=== PATIENT | male | born 1975 | race Caucasian/White ===

== ENCOUNTER → 2016-10-19 | Outpatient (CLI) | payer OTHER ==
[~2016-10-19] MED LIST: ADVIN50/60 INH; ALBUAER2 INH; AZIT500T3 PO; BUPR8MIS SL; LEVO-18 PO; LISI20TA3 PO; MTR/600 PO; OMEP20CA9 PO; PRED10TA PO; SNG10 PO; WLLXL300 PO
[2016-10-19 14:02] LABS: BENZODIAZEPINE, URINE NEG (NEG); COCAINE,URINE NEG (NEG); PHENCYCLIDINE, URINE NEG (NEG)
[2016-10-23 07:29] LABS: NORBUPRENORPHINE QNT 1440 NG/ML (CUTOFF=2)
== END | disposition home or self-care (01) ==
LOC: C.LAB1850 12:29
PROVIDERS: ATTEND Psychiatry & Neurology Psychiatry
DX: F11.20 Opioid dependence, uncomplicated (principal)

== ENCOUNTER → 2017-01-10 | Outpatient (CLI) | payer OTHER ==
[2017-01-10 15:38] LABS: BENZODIAZEPINE, URINE NEG (NEG); COCAINE,URINE NEG (NEG); PHENCYCLIDINE, URINE NEG (NEG)
[2017-01-13 15:32] LABS: NORBUPRENORPHINE QNT 1480 NG/ML (CUTOFF=2)
== END | disposition home or self-care (01) ==
LOC: C.LAB1850 13:26
PROVIDERS: ATTEND Psychiatry & Neurology Psychiatry
DX: F11.20 Opioid dependence, uncomplicated (principal)

== ENCOUNTER → 2017-01-11 | Outpatient (CLI) | payer OTHER ==
--- NOTE | 2017-01-11 12:38 | DIAGNOSTIC IMAGING REPORT ---
CHEST 2 VIEWS ROUTINE HISTORY: Cough. Short of breath. CHEST PAIN COMPARISON: Chest 02/06/2016. FINDINGS: The heart remains mildly enlarged. Mild diffuse interstitial thickening persists. This is likely chronic. No new focal lung consolidations to suggest pneumonia. No evidence for pulmonary edema. No pleural effusions. No pneumothorax. IMPRESSION: No significant change compared to the prior study. No acute process. Electronically signed by: Randal Gallegos M.D. 01/11/2017 12:36 PM Dictated Date/Time: 01/11/2017 12:34 PM
== END | disposition home or self-care (01) ==
LOC: C.RAD1850 12:01
PROVIDERS: ATTEND Physician Assistant Medical
DX: R07.9 Chest pain, unspecified (principal)

== ENCOUNTER 2017-01-30 15:48 | Inpatient (IN) | payer OTHER ==
[~2017-01-30] VITALS: Ht 182.9 cm; Wt 112.3 kg
[~2017-01-30 15:48] MED LIST changes: -AZIT500T3 PO; -LEVO-18 PO; -PRED10TA PO
[2017-01-30] MEDS ORDERED: SODIUM CHLORIDE 0.9% 1000ML 1,000 ML IV STA ×3 (16:42→19:18)
[2017-01-30] MEDS ORDERED: ACETAMINOPHEN 500 MG TAB PO STA (16:42)
[2017-01-30] MEDS ORDERED: ONDANSETRON INJ 2 MG/ML 2 ML VIAL IV STA (16:42)
[2017-01-30 16:51] LABS: BASO % 0.1 %; BASO ABS # 0.01 K/uL (0-0.2); COMPLETE YES; EOS % 0.1 %; HEMATOCRIT 43.2 % (42-52); IG% 0.2 %; LYMPH % 6.7 %; LYMPH ABS # 0.98 K/uL (1.2-3.4); MEAN CELL VOLUME 79.6 fL (80-100); MEAN CORPUSCULAR HEMOGLOBIN 25.6 pg (25-34); MEAN CORPUSCULAR HGB CONC 32.2 g/dl (32-36); MEAN PLATELET VOLUME 9.8 fL (7.4-10.4); MONO % 4.8 %; NEUT % 88.1 %; PLATELET COUNT 275 K/uL (130-400); RED BLOOD COUNT 5.43 M/uL (4.7-6.1); WHITE BLOOD COUNT 14.71 K/uL (4.8-10.8)
--- NOTE | 2017-01-30 16:52 | EMERGENCY ROOM VISIT NOTE ---
History Report prepared by Liz: Eugenia Jose Under the Supervision of: Dr. Marissa Garrison M.D. First contact with patient: 16:34 Chief Complaint: FLANK PAIN Stated Complaint: PAIN IN SIDE, NOT FEELING WELL History of Present Illness The patient is a 41 year old male who presents to the Emergency Room with complaints of left flank pain starting 1 month [employer]. The patient states that he has been having musculoskeletal pain on his left side for the last month but states that the last two day it has worsened. He rates the pain as a 7/10 in severity. The patient denies any trouble urinating but states that his urine has been darker than usual. The patient states that he has hepatitis C but states that he has had his liver function tested pretty regularly. The patient denies any history of kidney stones but states that he has had gallstones in the past. The patient denies taking any ibuprofen or Tylenol today for the pain. The patient states that he does smoke 1 pack of cigarettes a day. Source of History: patient Onset: 2 days Position: other (Left Flank) Symptom Intensity: 7/10 Timing: worsening Associated Symptoms: No urinary symptoms Note: Associated symptoms: darker urine. Review of Systems See HPI for pertinent positives & negatives. A total of 10 systems reviewed and were otherwise negative. Past Medical & Surgical Medical Problems: (1) Asthma (2) Hepatitis C (3) SIRS (systemic inflammatory response syndrome) Family History No significant family history Social History Smoking Status: Current Every Day Smoker Drug Use: none Marital Status: Housing Status: lives with family Occupation Status: employed Current/Historical Medications Scheduled Buprenorphine Hcl-Naloxone Hcl (Suboxone 8-2 Mg), 12 MG SL DAILY Bupropion HCl (Bupropion HCl Xl), 300 MG PO DAILY Fluticasone Prop/Salmeterol (Advair Diskus 500/50 60 Dose), 1 PUFF INH BID Lisinopril (Prinivil), 1 TAB PO DAILY Montelukast Sod (Montelukast Sodium), 10 MG PO QPM Omeprazole (Prilosec), 20 MG PO DAILY Scheduled PRN Albuterol (Ventolin), 2 PUFFS INH Q4H PRN for Asthma Symptoms Allergies Coded Allergies: Penicillins (Verified Allergy, Unknown, 01/30/17) Physical Exam Vital Signs Date Time Temp Pulse Resp B/P Pulse Ox O2 Delivery O2 Flow Rate FiO2 01/30/17 18:30 123 16 118/37 96 Nasal Cannula 2.0 01/30/17 17:11 123 01/30/17 16:18 38.1 124 18 146/103 88 Room Air Physical Exam Vital signs reviewed. General: Noted to be febrile, tachycardic and hypoxic on room air. HEENT: No scleral icterus, PERRLA, neck supple. Atraumatic. Cardiovascular: Regular rate and rhythm, no extra sounds. Pulmonary: Wheezing throughout bilateral lung field, primarily at the bases. Abdomen: Distended abdomen that is nontender, mild left side abdominal tenderness to palpation. Musculoskeletal: Atraumatic, no peripheral edema. Neurologic: Patient awake alert and oriented x 3, full strength in all 4 extremities. Cranial nerves 2 through 12 grossly intact. Skin: Warm, dry, no rash Medical Decision & Procedures ER Provider Diagnostic Interpretation: X-ray results as stated below per interpretation by me and the radiologist: CHEST ONE VIEW PORTABLE CLINICAL HISTORY: Wheezing. Fever. COMPARISON STUDY: Chest radiograph January 11, 2017. FINDINGS: No pneumothorax or pleural effusion is identified. Cardiac silhouette enlargement is noted. This is similar to prior exam. Interstitial thickening is noted with suspected left lung airspace opacities. There is mild right basilar opacity as well as right midlung opacity. IMPRESSION: Mild interstitial thickening and patchy bilateral airspace opacities, greater within the left lung. The findings are nonspecific but may reflect an infectious process. Radiographic follow up is recommended. Electronically signed by: Steven Oliveira M.D. 01/30/2017 5:14 PM Dictated Date/Time: 01/30/2017 5:[address] results as stated below per my review and radiologist interpretation: CT SCAN OF THE ABDOMEN AND PELVIS WITHOUT IV CONTRAST CLINICAL HISTORY: Left flank pain. COMPARISON STUDY: Abdominal CT dated 10/01/2015. TECHNIQUE: CT scan of the abdomen and pelvis is performed from the lung bases to the proximal femora. Images are reviewed in the axial, sagittal, and coronal planes. IV contrast was not administered for this examination as per the referring clinician. Automated dose control exposure was utilized. CT DOSE: 978.09 mGy.cm FINDINGS: Lung bases: The heart is mildly enlarged and without pericardial effusion. There is lipomatous hypertrophy of the interatrial septum. There is patchy airspace consolidation present at both lung bases. No pleural effusion is seen. There is a small hiatal hernia. Liver: The unenhanced liver is top normal in size and demonstrates diffusely diminished attenuation consistent with hepatic steatosis. There is no intrahepatic biliary ductal dilatation. Gallbladder: Unremarkable. Spleen: The spleen is mildly enlarged measuring 13.6 cm in length. Pancreas: Unremarkable. Adrenal glands: Unremarkable. Kidneys: The unenhanced kidneys are normal in size and without hydronephrosis. There are no renal calculi identified. There is no evidence of contour deforming renal mass lesion. Abdominal vasculature: The abdominal aorta is normal in course and caliber. Bowel: The small bowel and colon are normal in course and caliber. There are scattered colonic diverticula without CT evidence of acute diverticulitis. Mild/moderate colonic fecal retention is observed. The appendix is well-visualized and normal. Peritoneum: There is no intraperitoneal free air or abdominal ascites. A fat-containing umbilical hernia is identified. Lymphadenopathy: None. Pelvic viscera: The bladder, prostate, and seminal vesicles are normal as visualized. There is a fat-containing left inguinal hernia. Skeletal structures: No lytic or blastic lesions are seen. There is a healed left-sided rib fracture. IMPRESSION: 1. There are no acute infectious or inflammatory findings in the abdomen or pelvis. 2. Bibasilar patchy airspace consolidation is identified. This likely represents an infectious/inflammatory pneumonitis. Clinical correlation will be required. 3. Hepatic steatosis. 4. Mild splenomegaly. 5. Mild cardiac enlargement. 6. Hiatal hernia. 7. Additional findings as above. Electronically signed by: Omer Julio M.D. 01/30/2017 6:20 PM Dictated Date/Time: 01/30/2017 6:13 PM Laboratory Results Test 01/30/17 16:35 01/30/17 17:26 Urine Color DK YELLOW Urine Appearance CLEAR (CLEAR) Urine pH 6.5 (4.5-7.5) Urine Specific [place] 1.022 (1.000-1.030) Urine Protein 1+ (NEG) Urine Glucose (UA) 1+ (NEG) Urine Ketones TRACE (NEG) Urine Occult Blood NEG (NEG) Urine Nitrite NEG (NEG) Urine Bilirubin NEG (NEG) Urine Urobilinogen NEG (NEG) Urine Leukocyte Esterase NEG (NEG) Urine WBC (Auto) 1-5 /hpf (0-5) Urine RBC (Auto) 0-4 /hpf (0-4) Urine Hyaline Casts (Auto) 5-10 /lpf (0-5) Urine Epithelial Cells (Auto) 10-20 /lpf (0-5) Urine Bacteria (Auto) NEG (NEG) Total Bilirubin 0.6 mg/dl (0.2-1) Direct Bilirubin 0.2 mg/dl (0-0.2) Aspartate Amino Transf (AST/SGOT) 35 U/L (15-37) Alanine Aminotransferase (ALT/SGPT) 53 U/L (12-78) Alkaline Phosphatase 119 U/L (45-117) Total Protein 8.6 gm/dl (6.4-8.2) Albumin 3.5 gm/dl (3.4-5.0) Bedside Lactic Acid Venous 2.67 mmol/L (0.90-1.70) Laboratory results per my review. Medications Administered Medications (Trade) Dose Ordered Sig/Angelina Route Start Time Stop Time Status Last Admin Dose Admin Sodium Chloride 1,000 ml @ 999 mls/hr Q1H1M STAT IV 01/30/17 16:42 01/30/17 17:42 DC 01/30/17 16:57 999 MLS/HR Sodium Chloride (Nss 1000ml) 1,000 ml @ 200 mls/hr Q5H STAT IV 01/30/17 16:42 01/30/17 21:41 DC 01/30/17 16:58 200 MLS/HR Acetaminophen (Tylenol Tab) 1,000 mg NOW STAT PO 01/30/17 16:42 01/30/17 16:45 DC 01/30/17 16:58 1,000 MG Ondansetron HCl (Zofran Inj) 4 mg NOW STAT IV 01/30/17 16:42 01/30/17 16:45 DC 01/30/17 16:58 4 MG Levofloxacin 750 mg 750 mg NOW STAT IV 01/30/17 17:05 01/30/17 17:06 DC 01/30/17 17:26 750 MG Sodium Chloride (Nss 1000ml) 1,000 ml @ 999 mls/hr Q1H1M STAT IV 01/30/17 19:18 01/30/17 20:18 DC 01/30/17 19:18 999 MLS/HR Acetaminophen (Tylenol Tab) 650 mg Q4H PRN PO 01/30/17 20:00 03/01/17 19:59 5//17 10:43 650 MG ECG Indication: abdominal pain Rate (beats per minute): 118 Rhythm: sinus tachycardia Findings: no acute ischemic change, no ectopy ED Course 1633: Past medical records reviewed. The patient was evaluated in room A11B. A complete history and physical examination was performed. 1641: Ordered Zofran Inj 4 mg IV, Tylenol Tab 1,000 mg PO, Sodium Chloride 1, 000 ml @ 200 mls/hr IV, Sodium Chloride 1,000 ml @ 999 mls/hr IV. 1704: Ordered Levofloxacin 750 mg IV. 1916: I reevaluated the patient who was hemodynamically stable. I discussed the results with him and the plan for admission for further evaluation. 1917: Ordered Sodium Chloride 1,000 ml @ 999 mls/hr IV 1930: I discussed the case with [facility]. He agreed to evaluate the patient for further management and care. Medical Decision DDx: Influenza, other viral illness, pneumonia, urinary tract infection, metabolic abnormality, medication effect, cellulitis, meningitis, intra-abdominal source. This pt was evaluated and appeared to be ill. IV access was obtained and lab work was drawn. Pt was placed on the clinical research monitor. He was hydrated with NSS , given tylenol po and IV zofran. POC lactate and WBC are elevated. CXR is concernign for a bilateral PNA. Blood cultures were sent and pt was medicated with IV levaquin. Case was d/w Dr Diez of the hospitalist service and he agreed to evaluate for further management. Pt is aware of the plan and agrees. Consults Time Called: 1904 Consulting Physician: Dr. Heelna [facility] Returned Call: 1930 I discussed the case with Dr. [facility]. He agreed to evaluate the patient for further management and care. Impression Primary Impression: Bilateral pneumonia Additional Impression: Sepsis Critical Care I have personally spent greater than 30 minutes of critical care time in the direct management of this patient. This includes bedside care, interpretation of diagnostic studies, and testing, discussion with consultants, patient, and family members, and other required patient management activities. This 30 minutes is in excess of all separately billable procedures. Scribe Attestation The scribe's documentation has been prepared under my direction and personally reviewed by me in its entirety. I confirm that the note above accurately reflects all work, treatment, procedures, and medical decision making performed by me. Departure Information Dispostion Being Evaluated By Hospitalist Referrals No Doctor, Assigned (PCP) Patient Instructions My [facility] Problem Qualifiers Primary Impression: Bilateral pneumonia
[2017-01-30 16:58] LABS: URINE APPEARANCE CLEAR (CLEAR); URINE COLOR DK YELLOW; URINE NITRITE NEG (NEG); URINE PH 6.5 (4.5-7.5); URINE SPECIFIC GRAVITY 1.022 (1.000-1.030); UROBILINOGEN NEG (NEG); ZZUR CULT IF INDIC CLEAN CATCH NO
[2017-01-30 16:59] LABS: MANUAL MICROSCOPIC REQUIRED? NO; REVIEW REQ? NO; URINE BILIRUBIN NEG (NEG)
[2017-01-30 17:02] LABS: BUN/CREATININE RATIO 10.5 (10-20); CALCIUM 9.3 mg/dl (8.5-10.1); CREATININE 1.2 mg/dl (0.60-1.40); POTASSIUM 4.2 mmol/L (3.5-5.1)
[2017-01-30] MEDS ORDERED: LEVAQUIN 750MG / 150ML D5W IV STA (17:05)
--- NOTE | 2017-01-30 17:15 | DIAGNOSTIC IMAGING REPORT ---
CHEST ONE VIEW PORTABLE CLINICAL HISTORY: Wheezing. Fever. COMPARISON STUDY: Chest radiograph January 11, 2017. FINDINGS: No pneumothorax or pleural effusion is identified. Cardiac silhouette enlargement is noted. This is similar to prior exam. Interstitial thickening is noted with suspected left lung airspace opacities. There is mild right basilar opacity as well as right midlung opacity. IMPRESSION: Mild interstitial thickening and patchy bilateral airspace opacities, greater within the left lung. The findings are nonspecific but may reflect an infectious process. Radiographic follow up is recommended. Electronically signed by: Steven Oliveira M.D. 01/30/2017 5:14 PM Dictated Date/Time: 01/30/2017 5:12 PM
--- NOTE | 2017-01-30 18:21 | DIAGNOSTIC IMAGING REPORT ---
CT SCAN OF THE ABDOMEN AND PELVIS WITHOUT IV CONTRAST CLINICAL HISTORY: Left flank pain. COMPARISON STUDY: Abdominal CT dated 10/01/2015. TECHNIQUE: CT scan of the abdomen and pelvis is performed from the lung bases to the proximal femora. Images are reviewed in the axial, sagittal, and coronal planes. IV contrast was not administered for this examination as per the referring clinician. Automated dose control exposure was utilized. CT DOSE: 978.09 mGy.cm FINDINGS: Lung bases: The heart is mildly enlarged and without pericardial effusion. There is lipomatous hypertrophy of the interatrial septum. There is patchy airspace consolidation present at both lung bases. No pleural effusion is seen. There is a small hiatal hernia. Liver: The unenhanced liver is top normal in size and demonstrates diffusely diminished attenuation consistent with hepatic steatosis. There is no intrahepatic biliary ductal dilatation. Gallbladder: Unremarkable. Spleen: The spleen is mildly enlarged measuring 13.6 cm in length. Pancreas: Unremarkable. Adrenal glands: Unremarkable. Kidneys: The unenhanced kidneys are normal in size and without hydronephrosis. There are no renal calculi identified. There is no evidence of contour deforming renal mass lesion. Abdominal vasculature: The abdominal aorta is normal in course and caliber. Bowel: The small bowel and colon are normal in course and caliber. There are scattered colonic diverticula without CT evidence of acute diverticulitis. Mild/moderate colonic fecal retention is observed. The appendix is well-visualized and normal. Peritoneum: There is no intraperitoneal free air or abdominal ascites. A fat-containing umbilical hernia is identified. Lymphadenopathy: None. Pelvic viscera: The bladder, prostate, and seminal vesicles are normal as visualized. There is a fat-containing left inguinal hernia. Skeletal structures: No lytic or blastic lesions are seen. There is a healed left-sided rib fracture. IMPRESSION: 1. There are no acute infectious or inflammatory findings in the abdomen or pelvis. 2. Bibasilar patchy airspace consolidation is identified. This likely represents an infectious/inflammatory pneumonitis. Clinical correlation will be required. 3. Hepatic steatosis. 4. Mild splenomegaly. 5. Mild cardiac enlargement. 6. Hiatal hernia. 7. Additional findings as above. Electronically signed by: Omer Julio M.D. 01/30/2017 6:20 PM Dictated Date/Time: 01/30/2017 6:13 PM
[2017-01-30] MEDS ORDERED: ZOLPIDEM TARTRATE 5 MG TAB PO PRN (20:00)
[2017-01-30] MEDS ORDERED: ONDANSETRON INJ 2 MG/ML 2 ML VIAL IV PRN (20:00)
[2017-01-30] MEDS ORDERED: ACETAMINOPHEN 325 MG TAB PO PRN (20:00)
[2017-01-30] MEDS ORDERED: TRAMADOL HCL 50 MG TAB PO PRN ×2 (20:00)
[2017-01-30] MEDS ORDERED: MoRPHine SULFATE 4 MG/ML 1 ML CARP\\VIAL IV PRN (20:00)
[2017-01-30] MEDS ORDERED: MoRPHine SULFATE 2 MG/ML CARP IV PRN (20:00)
--- NOTE | 2017-01-30 20:04 | History and Physical ---
History & Physical Date & Time of Service: January 30, 2017 at 20:02 Chief Complaint: Pain In Side, Not Feeling Well Primary Care Physician: No Doctor, Assigned History of Present Illness Source: patient, family The patient is a 41 yo male with a history of tobacco abuse, recurrent pneumonia , who presents to the ED with 3 days of pleuritic left lateral chest pain, worse with inspiration, ROJO, and a non productive cough. He has not had any recent travels, has no sick exposures, and is aware that continued tobacco use predisposes him to recurrent infection. Past Medical/Surgical History Medical Problems: (1) Asthma Status: Chronic (2) Hepatitis C Status: Chronic Family History No significant family history Social History Smoking Status: Current Every Day Smoker Smokeless Tobacco Use: No Alcohol Use: none Drug Use: none Marital Status: Housing status: lives with family Occupational Status: employed Immunizations History of Tetanus Vaccine?: No History of Pneumococcal: No History of Hepatitis B Vaccine: No Multi-Drug Resistant Organisms History of MDRO: No Allergies Coded Allergies: Penicillins (Verified Allergy, Unknown, 01/30/17) Home Medications Scheduled Buprenorphine Hcl-Naloxone Hcl (Suboxone 8-2 Mg), 12 MG SL DAILY Bupropion HCl (Bupropion HCl Xl), 300 MG PO DAILY Fluticasone Prop/Salmeterol (Advair Diskus 500/50 60 Dose), 1 PUFF INH BID Lisinopril (Prinivil), 1 TAB PO DAILY Montelukast Sod (Montelukast Sodium), 10 MG PO QPM Omeprazole (Prilosec), 20 MG PO DAILY Scheduled PRN Albuterol (Ventolin), 2 PUFFS INH Q4H PRN for Asthma Symptoms Review of Systems Constitutional: + fatigue, No chills, No fever, No sweats, No weakness, No weight loss Eyes: No diplopia, No discharge, No eye pain, No problem reported, No redness, No worsening of vision ENT: No dental problems, No hearing loss, No nasal symptoms, No problem reported, No sore throat, No tinnitus, No trouble swallowing, No unusual epistaxis Respiratory: + cough, No dyspnea at rest, No dyspnea on exertion, No hemoptysis , No shortness of breath, No sputum, No wheezing Cardiovascular: + chest pain, No PND, No claudication, No edema, No orthopnea, No palpitations Abdomen: No GI bleeding, No constipation, No diarrhea, No nausea, No pain, No problem reported, No vomiting Musculoskeletal: No calf pain, No joint pain, No muscle pain, No problem reported, No swelling Genitourinary - Male: No dysuria, No hematuria, No impotence, No lesions, No penile discharge, No problem reported, No urinary frequency, No urinary hesitancy, No urinary incontinence, No urinary retention, No urinary urgency Neurologic: No balance problems, No memory loss, No numbness/tingling, No paralysis, No problem reported, No vertigo, No weakness Psychiatric: + depression symptoms, + problem reported, No anhedonism, No anxiety, No insomnia, No substance abuse Endocrine: No excessive thirst, No excessive urination, No fatigue, No problem reported Hematologic / Lymphatic: No abnormal bleeding/bruising, No clotting problems, No night sweats, No problem reported, No swollen lymph nodes Integumentary: No bleeding, No color change, No itch, No new/changing skin lesions, No problem reported, No rash Allergic / Immunologic: + frequent infections, No environmental allergies, No food allergies, No hives, No pet sensitivities, No poor healing, No prolonged convalescence, No seasonal allergies Physical Exam Vital Signs Date Time Temp Pulse Resp B/P Pulse Ox O2 Delivery O2 Flow Rate FiO2 01/30/17 18:30 123 16 118/37 96 Nasal Cannula 2.0 01/30/17 17:11 123 01/30/17 16:18 38.1 124 18 146/103 88 Room Air General Appearance: WD/WN, no apparent distress Head: normocephalic, atraumatic Eyes: normal inspection, PERRL, EOMI ENT: normal ENT inspection, hearing grossly normal, TMs normal, pharynx normal Neck: supple, no adenopathy, thyroid normal, no JVD, no carotid bruits, trachea midline Respiratory/Chest: chest non-tender, + decreased breath sounds, + rhonchi Cardiovascular: regular rate, rhythm, no edema, no gallop, no JVD, no murmur, normal peripheral pulses Abdomen/GI: normal bowel sounds, non tender, soft, no organomegaly, no pulsatile mass Back: normal inspection, no CVA tenderness, no muscle spasm, normal range of motion Extremities/Musculoskelatal: normal inspection, no calf tenderness, normal capillary refill, no pedal edema, normal range of motion, non-tender 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, no motor/sensory deficits, alert, normal mood/affect, normal reflexes, oriented x 3 Skin: normal color, warm/dry, no rash Lymphatic: no adenopathy Diagnostics Laboratory Results Results Past 24 Hours Test 01/30/17 16:35 01/30/17 17:26 01/30/17 19:45 Range/Units White Blood Count 14.71 4.8-10.8 K/uL Red Blood Count 5.43 4.7-6.1 M/uL Hemoglobin 13.9 14.0-18.0 g/dL Hematocrit 43.2 42-52 % Mean Corpuscular Volume 79.6 80-100 fL Mean Corpuscular Hemoglobin 25.6 25-34 pg Mean Corpuscular Hemoglobin Concent 32.2 32-36 g/dl Platelet Count 275 130-400 K/uL Mean Platelet Volume 9.8 7.4-10.4 fL Neutrophils (%) (Auto) 88.1 % Lymphocytes (%) (Auto) 6.7 % Monocytes (%) (Auto) 4.8 % Eosinophils (%) (Auto) 0.1 % Basophils (%) (Auto) 0.1 % Neutrophils # (Auto) 12.98 1.4-6.5 K/uL Lymphocytes # (Auto) 0.98 1.2-3.4 K/uL Monocytes # (Auto) 0.70 0.11-0.59 K/uL Eosinophils # (Auto) 0.01 0-0.5 K/uL Basophils # (Auto) 0.01 0-0.2 K/uL RDW Standard Deviation 47.5 36.4-46.3 fL RDW Coefficient of Variation 16.4 11.5-14.5 % Immature Granulocyte % (Auto) 0.2 % Immature Granulocyte # (Auto) 0.03 0.00-0.02 K/uL Urine Color DK YELLOW Urine Appearance CLEAR CLEAR Urine pH 6.5 4.5-7.5 Urine Specific [place] 1.022 1.000-1.030 Urine Protein 1+ NEG Urine Glucose (UA) 1+ NEG Urine Ketones TRACE NEG Urine Occult Blood NEG NEG Urine Nitrite NEG NEG Urine Bilirubin NEG NEG Urine Urobilinogen NEG NEG Urine Leukocyte Esterase NEG NEG Urine WBC (Auto) 1-5 0-5 /hpf Urine RBC (Auto) 0-4 0-4 /hpf Urine Hyaline Casts (Auto) 5-10 0-5 /lpf Urine Epithelial Cells (Auto) 10-20 0-5 /lpf Urine Bacteria (Auto) NEG NEG Sodium Level 134 136-145 mmol/L Potassium Level 4.2 3.5-5.1 mmol/L Chloride Level 98 98-107 mmol/L Carbon Dioxide Level 28 21-32 mmol/L Anion Gap 8.0 3-11 mmol/L Blood Urea Nitrogen 13 7-18 mg/dl Creatinine 1.20 0.60-1.40 mg/dl Est Creatinine Clear Calc Drug Dose 106.7 ml/min Estimated GFR () 87.8 Estimated GFR (Non- 75.7 BUN/Creatinine Ratio 10.5 10-20 Random Glucose 145 70-99 mg/dl Calcium Level 9.3 8.5-10.1 mg/dl Total Bilirubin 0.6 0.2-1 mg/dl Direct Bilirubin 0.2 0-0.2 mg/dl Aspartate Amino Transf (AST/SGOT) 35 15-37 U/L Alanine Aminotransferase (ALT/SGPT) 53 12-78 U/L Alkaline Phosphatase 119 45-117 U/L Total Protein 8.6 6.4-8.2 gm/dl Albumin 3.5 3.4-5.0 gm/dl Bedside Lactic Acid Venous 2.67 0.90-1.70 mmol/L Microbiology Results 01/30/17 Blood Culture, Received Pending 01/30/17 Blood Culture, Received Pending Diagnostic Radiology Patient Name: NAVEEN LEI Unit Number: [id number] Dictated: 01/30/171812 Transcribed: 01/30/171812 EV Printed Date/Time: [~ rep prt dt]/[~ rep prt tm] [~ rep ct labl] - [~ rep ct ivnm] [facility] [place] [place] [address] Dictated: 01/30/171812 Transcribed: 01/30/171812 EV Printed Date/Time: [~ rep prt dt]/[~ rep prt tm] [~ rep ct labl] - [~ rep ct ivnm] CT SCAN OF THE ABDOMEN AND PELVIS WITHOUT IV CONTRAST CLINICAL HISTORY: Left flank pain. COMPARISON STUDY: Abdominal CT dated 10/01/2015. TECHNIQUE: CT scan of the abdomen and pelvis is performed from the lung bases to the proximal femora. Images are reviewed in the axial, sagittal, and coronal planes. IV contrast was not administered for this examination as per the referring clinician. Automated dose control exposure was utilized. CT DOSE: 978.09 mGy.cm FINDINGS: Lung bases: The heart is mildly enlarged and without pericardial effusion. There is lipomatous hypertrophy of the interatrial septum. There is patchy airspace consolidation present at both lung bases. No pleural effusion is seen. There is a small hiatal hernia. Liver: The unenhanced liver is top normal in size and demonstrates diffusely diminished attenuation consistent with hepatic steatosis. There is no intrahepatic biliary ductal dilatation. Gallbladder: Unremarkable. Spleen: The spleen is mildly enlarged measuring 13.6 cm in length. Pancreas: Unremarkable. Adrenal glands: Unremarkable. Kidneys: The unenhanced kidneys are normal in size and without hydronephrosis. There are no renal calculi identified. There is no evidence of contour deforming renal mass lesion. Abdominal vasculature: The abdominal aorta is normal in course and caliber. Bowel: The small bowel and colon are normal in course and caliber. There are scattered colonic diverticula without CT evidence of acute diverticulitis. Mild/moderate colonic fecal retention is observed. The appendix is well-visualized and normal. Peritoneum: There is no intraperitoneal free air or abdominal ascites. A fat-containing umbilical hernia is identified. Lymphadenopathy: None. Pelvic viscera: The bladder, prostate, and seminal vesicles are normal as visualized. There is a fat-containing left inguinal hernia. Skeletal structures: No lytic or blastic lesions are seen. There is a healed left-sided rib fracture. IMPRESSION: 1. There are no acute infectious or inflammatory findings in the abdomen or pelvis. 2. Bibasilar patchy airspace consolidation is identified. This likely represents an infectious/inflammatory pneumonitis. Clinical correlation will be required. 3. Hepatic steatosis. 4. Mild splenomegaly. 5. Mild cardiac enlargement. 6. Hiatal hernia. 7. Additional findings as above. Electronically signed by: Omer Julio M.D. 01/30/2017 6:20 PM Dictated Date/Time: 01/30/2017 6:13 PM The status of this report is Signed. Draft = Not yet reviewed or approved by Radiologist. Signed = Reviewed and approved by Radiologist. <AttendingPhy></AttendingPhy> <FamilyPhy>No Doctor, Assigned</FamilyPhy> < PrimaryPhy>No Doctor, Assigned</PrimaryPhy> <UnitNumber>[id number]</UnitNumber> <VisitNumber>[id number]</VisitNumber> <PatientName>NAVEEN LEI</PatientName> < DateOfBirth>1975</DateOfBirth> <Location>[facility]</Location> <ServiceDate>10/18</ServiceDate> <MNE>ESINDI</MNE> <OrderingPhy>Marissa Garrison M.D.</ OrderingPhy> <OrderingPhyMNE>f rep ord dr [facility]as</OrderingPhyMNE> <DictatingPhyMNE> f rep dict dr salas</DictatingPhyMNE> <CCListMNE>f rep ct mne</CCListMNE> < AdmittingPhyMNE>f pt admit dr salas</AdmittingPhyMNE> <AttendingPhyMNE>f pt attend dr [place]as</AttendingPhyMNE> <ConsultingPhyMNE>f pt consult dr salas</ConsultingPhyMNE> <FamilyPhyMNE>f pt fam dr salas</FamilyPhyMNE> <OtherPhyMNE>f pt other dr salas</OtherPhyMNE> < PrimaryPhyMNE>f pt prim care dr salas</PrimaryPhyMNE> <ReferringPhyMNE>f pt referring dr salas</ReferringPhyMNE> Patient Name: NAVEEN LEI Unit Number: [id number] Dictated: 01/30/171711 Transcribed: 01/30/171711 SARA Printed Date/Time: [~ rep prt dt]/[~ rep prt tm] [~ rep ct labl] - [~ rep ct ivnm] [facility] [place] [place] [address] Dictated: 01/30/171711 Transcribed: 01/30/171711 SARA Printed Date/Time: [~ rep prt dt]/[~ rep prt tm] [~ rep ct labl] - [~ rep ct ivnm] CHEST ONE VIEW PORTABLE CLINICAL HISTORY: Wheezing. Fever. COMPARISON STUDY: Chest radiograph January 11, 2017. FINDINGS: No pneumothorax or pleural effusion is identified. Cardiac silhouette enlargement is noted. This is similar to prior exam. Interstitial thickening is noted with suspected left lung airspace opacities. There is mild right basilar opacity as well as right midlung opacity. IMPRESSION: Mild interstitial thickening and patchy bilateral airspace opacities, greater within the left lung. The findings are nonspecific but may reflect an infectious process. Radiographic follow up is recommended. Electronically signed by: Steven Oliveira M.D. 01/30/2017 5:14 PM Dictated Date/Time: 01/30/2017 5:12 PM The status of this report is Signed. Draft = Not yet reviewed or approved by Radiologist. Signed = Reviewed and approved by Radiologist. <AttendingPhy></AttendingPhy> <FamilyPhy>No Doctor, Assigned</FamilyPhy> < PrimaryPhy>No Doctor, Assigned</PrimaryPhy> <UnitNumber>[id number]</UnitNumber> <VisitNumber>[id number]</VisitNumber> <PatientName>NAVEEN LEI</PatientName> < DateOfBirth>1975</DateOfBirth> <Location>[facility]</Location> <ServiceDate>10/18</ServiceDate> <MNE>ESINDI</MNE> <OrderingPhy>Marissa Garrison M.D.</ OrderingPhy> <OrderingPhyMNE>f rep ord dr salas</OrderingPhyMNE> <DictatingPhyMNE> f rep dict dr salas</DictatingPhyMNE> <CCListMNE>f rep ct mne</CCListMNE> < AdmittingPhyMNE>f pt admit dr saals</AdmittingPhyMNE> <AttendingPhyMNE>f pt attend dr salas</AttendingPhyMNE> <ConsultingPhyMNE>f pt consult dr salas</ConsultingPhyMNE> <FamilyPhyMNE>f pt fam dr salas</FamilyPhyMNE> <OtherPhyMNE>f pt other dr salas</OtherPhyMNE> < PrimaryPhyMNE>f pt prim care dr salas</PrimaryPhyMNE> <ReferringPhyMNE>f pt referring dr salas</ReferringPhyMNE> EKG EKG shows sinus tachycardia at 118 bpm, there are no acute ST-T changes, and no change compared to 02/06/2016. Impression Assessment and Plan Bilateral pneumonia--the patient will be admitted to the telemetry unit. Place on ceftriaxone 1 g IV daily, levofloxacin 500 mg IV every 24 hours, guaifenesin extended release 600 mg by mouth twice a day, Solu-Medrol 20 mg IV every 8 hours , and Xopenex with Atrovent nebulizer every 6 hours while awake and every 2 hours when necessary. Nasal cannula 2 L O2 titrated to keep pulse ox greater than or equal to 92%. We will hold Advair Diskus, and continue montelukast 10 mg by mouth daily. Hypertension--continue lisinopril. GERD--change omeprazole 20 mg by mouth daily to pantoprazole 40 mg by mouth daily. Depression--continue bupropion XL 300 mg by mouth daily. Hepatitis C reports regular test in the outpatient setting. Drug abuse history--continue Suboxone as per outpatient. Level of Care Telemetry Advanced Directives Existing Advance Directive: No Existing Living Will: No Existing Power of Heavy Forger: No Resuscitation Status FULL RESUSCITATION VTE Prophylaxis VTE Risk Assessment Done? Y/N: Yes Risk Level: Moderate Given or contraindicated: SCD's Social Service Consult None Apply
[2017-01-30] MEDS ORDERED: LEVALBUTEROL/IPRATROPIUM NEB INH SCH (21:00)
[2017-01-30 21:22] VITALS: BP 147/83; PULSE 105; TEMP 37.3; O2SAT 93
[2017-01-30 21:30] VITALS: O2SAT 94; Ht 182.9 cm; Wt 112.3 kg
[2017-01-30] MEDS ORDERED: IPRATROPIUM BROMIDE NEB SOLN 0.02% 2.5 ML VIAL INH PRN (22:00)
[2017-01-30] MEDS ORDERED: LEVALBUTEROL 1.25MG/0.5ML NEB INH PRN (22:00)
[2017-01-30] MEDS: CEFTRIAXONE SOD INJ 1 GM in DEXTROSE 5% ADD-VANTAGE 50ML 50 ML IV SCH (22:25)
[2017-01-30] MEDS: METHYLPREDNISOLONE IV 30 MG in SYRINGE 0 ML IV SCH (22:25)
[2017-01-30] MEDS: GUAIFENESIN 600 MG TABCR PO SCH (22:25)
[2017-01-30] MEDS: MONTELUKAST SOD 10 MG TAB PO SCH (22:26)
[2017-01-30 23:15] VITALS: BP 127/86; PULSE 82; TEMP 37.2; O2SAT 97
[2017-01-31] VITALS (10 sets, daily range): BP systolic 119–137; BP diastolic 73–86; PULSE 68–108; TEMP 36.8–37; O2SAT 90–96
[2017-01-31] MEDS: LEVALBUTEROL 1.25MG/0.5ML NEB INH SCH ×4 (02:15→19:19)
[2017-01-31] MEDS: IPRATROPIUM BROMIDE NEB SOLN 0.02% 2.5 ML VIAL INH SCH ×4 (02:15→19:19)
[2017-01-31 03:57] LABS: COMPLETE YES; EOS % 0.1 %; HEMATOCRIT 37.3 % (42-52); IG% 0.2 %; LYMPH % 5.4 %; LYMPH ABS # 0.47 K/uL (1.2-3.4); MEAN CELL VOLUME 78.7 fL (80-100); MEAN CORPUSCULAR HEMOGLOBIN 24.5 pg (25-34); MEAN CORPUSCULAR HGB CONC 31.1 g/dl (32-36); MEAN PLATELET VOLUME 9.1 fL (7.4-10.4); MONO % 2.1 %; NEUT % 92.2 %; PLATELET COUNT 189 K/uL (130-400); RED BLOOD COUNT 4.74 M/uL (4.7-6.1); WHITE BLOOD COUNT 8.73 K/uL (4.8-10.8)
[2017-01-31 04:26] LABS: BLOOD UREA NITROGEN 12 mg/dl (7-18); BUN/CREATININE RATIO 11.9 (10-20); CALCIUM 8.4 mg/dl (8.5-10.1); CARBON DIOXIDE 29 mmol/L (21-32); CHLORIDE 104 mmol/L (98-107); GLUCOSE 149 mg/dl (70-99); MAGNESIUM 1.9 mg/dl (1.8-2.4); POTASSIUM 4.9 mmol/L (3.5-5.1); SODIUM 138 mmol/L (136-145)
[2017-01-31] MEDS: METHYLPREDNISOLONE IV 30 MG in SYRINGE 0 ML IV SCH (05:43)
[2017-01-31] MEDS: GUAIFENESIN 600 MG TABCR PO SCH ×2 (07:38→20:35)
[2017-01-31] MEDS: PANTOprazole SOD 40 MG TAB PO SCH (07:39)
[2017-01-31] MEDS: LISINOPRIL 20 MG TAB PO SCH (07:39)
[2017-01-31] MEDS: BuPROPion XL 300 MG TABCR PO SCH (07:39)
[2017-01-31] MEDS ORDERED: AZITHROMYCIN IV 500 MG in DEXTROSE 5% 250ML 250 ML IV SCH (09:00)
--- NOTE | 2017-01-31 11:41 | Hospitalist Progress Note ---
Hospitalist Progress Note Date of Service January 31, 2017. (Verena Lenz ., NAV[facility]) Subjective Pt evaluation today including: conversation w/ patient, physical exam, chart review, lab review, review of studies, review of inpatient medication list Pain: None PO Intake: Tolerating PO diet, appetite improving Voiding: no voiding problems Patient reports feeling well. He states that his appetite is starting to come back. He is complaining of some weakness and fatigue as well as a productive cough. He complains of intermittent wheezing but states that this is somewhat chronic, due to his asthma and smoking. The patient denies fevers, chills, sweats, chest pain, palpitations, claudication, shortness of breath, nausea, vomiting, abdominal pain, dysuria, hematuria, urinary retention, paralysis, weakness, numbness and tingling. Additional Comments: See HPI for pertinent positives and negatives. All other systems reviewed and negative. (Verena Lenz ., PA-C) Objective Vital Signs Date Time Temp Pulse Resp B/P Pulse Ox O2 Delivery O2 Flow Rate FiO2 01/31/17 09:30 Room Air 01/31/17 09:25 37.0 87 17 137/86 92 Room Air 01/31/17 09:19 36.8 79 16 94 0.0 01/31/17 08:00 Room Air 01/31/17 07:24 68 16 91 Room Air 01/31/17 07:23 36.8 79 16 127/77 94 Room Air 01/31/17 04:00 Room Air 01/31/17 03:51 36.8 73 17 119/79 90 Room Air 01/31/17 02:15 68 16 96 Nasal Cannula 1.5 01/31/17 00:00 Nasal Cannula 2.0 01/30/17 23:15 37.2 82 17 127/86 97 Room Air 01/30/17 21:30 94 Nasal Cannula 2.0 01/30/17 21:30 Nasal Cannula 2.0 01/30/17 21:22 37.3 105 16 147/83 93 Nasal Cannula 2.0 01/30/17 21:09 94 20 121/42 94 Nasal Cannula 2.0 01/30/17 18:30 123 16 118/37 96 Nasal Cannula 2.0 01/30/17 17:11 123 01/30/17 16:18 38.1 124 18 146/103 88 Room Air (Verena Lenz ., PA-C) Physical Exam Notes: General appearance: + obese. Well-developed, well-nourished, no apparent distress Head: Normocephalic, atraumatic Eyes: Normal inspection, PERRL, EOMI ENT: Normal ENT inspection, hearing grossly normal, pharynx normal Neck: Supple, no JVD, trachea midline Respiratory/Chest: +crackles bilaterally from base to mid lung suazo. Decreased breath sounds in bases. Normal breath sounds, no respiratory distress Cardiovascular: Regular rate & rhythm, no gallop, no murmur Abdomen/GI: Normal bowel sounds, non-tender, soft Extremities/Musculoskeletal: Normal inspection, no calf tenderness, no pedal edema Neurological/Psych: Alert, normal mood/affect, oriented x 3 Skin: Normal color, warm/dry, no rash (Verena Lenz ., PA-C) Laboratory Results Last 24 Hours Test 01/30/17 16:35 01/30/17 17:26 01/30/17 20:15 01/31/17 03:45 White Blood Count 14.71 K/uL 8.73 K/uL Red Blood Count 5.43 M/uL 4.74 M/uL Hemoglobin 13.9 g/dL 11.6 g/dL Hematocrit 43.2 % 37.3 % Mean Corpuscular Volume 79.6 fL 78.7 fL Mean Corpuscular Hemoglobin 25.6 pg 24.5 pg Mean Corpuscular Hemoglobin Concent 32.2 g/dl 31.1 g/dl Platelet Count 275 K/uL 189 K/uL Mean Platelet Volume 9.8 fL 9.1 fL Neutrophils (%) (Auto) 88.1 % 92.2 % Lymphocytes (%) (Auto) 6.7 % 5.4 % Monocytes (%) (Auto) 4.8 % 2.1 % Eosinophils (%) (Auto) 0.1 % 0.1 % Basophils (%) (Auto) 0.1 % 0.0 % Neutrophils # (Auto) 12.98 K/uL 8.05 K/uL Lymphocytes # (Auto) 0.98 K/uL 0.47 K/uL Monocytes # (Auto) 0.70 K/uL 0.18 K/uL Eosinophils # (Auto) 0.01 K/uL 0.01 K/uL Basophils # (Auto) 0.01 K/uL 0.00 K/uL RDW Standard Deviation 47.5 fL 46.7 fL RDW Coefficient of Variation 16.4 % 16.2 % Immature Granulocyte % (Auto) 0.2 % 0.2 % Immature Granulocyte # (Auto) 0.03 K/uL 0.02 K/uL Urine Color DK YELLOW Urine Appearance CLEAR Urine pH 6.5 Urine Specific [place] 1.022 Urine Protein 1+ Urine Glucose (UA) 1+ Urine Ketones TRACE Urine Occult Blood NEG Urine Nitrite NEG Urine Bilirubin NEG Urine Urobilinogen NEG Urine Leukocyte Esterase NEG Urine WBC (Auto) 1-5 /hpf Urine RBC (Auto) 0-4 /hpf Urine Hyaline Casts (Auto) 5-10 /lpf Urine Epithelial Cells (Auto) 10-20 /lpf Urine Bacteria (Auto) NEG Sodium Level 134 mmol/L 138 mmol/L Potassium Level 4.2 mmol/L 4.9 mmol/L Chloride Level 98 mmol/L 104 mmol/L Carbon Dioxide Level 28 mmol/L 29 mmol/L Anion Gap 8.0 mmol/L 5.0 mmol/L Blood Urea Nitrogen 13 mg/dl 12 mg/dl Creatinine 1.20 mg/dl 1.00 mg/dl Est Creatinine Clear Calc Drug Dose 106.7 ml/min 129.1 ml/min Estimated GFR () 87.8 109.4 Estimated GFR (Non- 75.7 94.4 BUN/Creatinine Ratio 10.5 11.9 Random Glucose 145 mg/dl 149 mg/dl Calcium Level 9.3 mg/dl 8.4 mg/dl Total Bilirubin 0.6 mg/dl Direct Bilirubin 0.2 mg/dl Aspartate Amino Transf (AST/SGOT) 35 U/L Alanine Aminotransferase (ALT/SGPT) 53 U/L Alkaline Phosphatase 119 U/L Total Protein 8.6 gm/dl Albumin 3.5 gm/dl Bedside Lactic Acid Venous 2.67 mmol/L Lactic Acid Level 1.2 mmol/L Magnesium Level 1.9 mg/dl Total Creatine Kinase 43 U/L Creatine Kinase MB < 0.5 ng/ml Creatine Kinase MB Ratio Troponin I < 0.015 ng/ml (Verena Lenz ., KALIN-C) Assessment and Plan 41-year-old male with a history of asthma, hypertension, drug abuse, GERD, chronic hepatitis C and depression who presented to the ED with pleuritic chest pain, dyspnea on exertion and cough. Sepsis due to bilateral community-acquired pneumonia with hypoxia--patient meets criteria for sepsis with fever, tachycardia, leukocytosis and source of infection. Improving -Admitted to tele. Pt in normal sinus rhythm with heart rate between 60s and 80s. Transferred to [facility] on 01/31 -Levaquin IV d/c'd -Continue Rocephin 1 g IV qd -Start azithromycin 500 mg IV qd -Fevers, tachycardia and leukocytosis resolved. WBC now WNL at 8.73 on 01/31 -Patient now saturating 92-94% on room air -D/C Solu-Medrol -Start Prednisone 40 mg PO qd -Continue Xopenex/Atrovent nebulizers QIDR and q2h prn SOB/wheezing -Continue Mucinex 600 mg PO BID Asthma--stable -Hold Advair -Continue Singulair 10 mg PO qd HTN--stable -Continue lisinopril 20 mg PO qd H/o drug abuse -Continue Suboxone outpt regimen GERD -Protonix 40 mg PO qd Depression -Continue Wellbutrin 300 mg PO qd DVT prophylaxis -Enoxaparin 40 mg SC q24h -SCDs Code Status -Level I, FULL RESUSCITATION STATUS This chart was completed in part utilizing [employer] Speech Voice Recognition software. Attempts were made to minimize the grammatical errors, random word insertions, pronoun errors and incomplete sentences. Any formal questions or concerns about the content, text or information contained within the body of this dictation should be directly addressed to the provider for clarification. (Verena Lenz ., PA-C) I agree with PA assessment and plan and have seen and examined pt myself mild flank pain on left side improving no fevers or chills WBC improving cont antibx labs and CXR reviewed lungs cta b/l, no w/r/r likely DC in next 24 hrs (Roshan Norton D.O.)
[2017-01-31 12:49] LABS: PROTHROMBIN TIME (PATIENT) 10.6 SECONDS (9.0-12.0)
[2017-01-31] MEDS ORDERED: ENOXAPARIN 40 MG/0.4 ML SYR SQ ONE (13:00)
[2017-01-31] MEDS ORDERED: LEVOFLOXACIN / D5W 500 MG in PREMIXED IN D5W 100 ML IV SCH (18:00)
[2017-01-31] MEDS: MONTELUKAST SOD 10 MG TAB PO SCH (20:35)
[2017-01-31] MEDS: CEFTRIAXONE SOD INJ 1 GM in DEXTROSE 5% ADD-VANTAGE 50ML 50 ML IV SCH (21:37)
[2017-02-01 00:01] VITALS: BP 123/76; PULSE 106; TEMP 36.9; O2SAT 93
[2017-02-01 02:16] VITALS: PULSE 101; O2SAT 93
[2017-02-01] MEDS: LEVALBUTEROL 1.25MG/0.5ML NEB INH SCH ×2 (02:16→07:12)
[2017-02-01] MEDS: IPRATROPIUM BROMIDE NEB SOLN 0.02% 2.5 ML VIAL INH SCH ×2 (02:16→07:12)
[2017-02-01 07:03] VITALS: BP 132/83; PULSE 81; TEMP 36.9; O2SAT 93
[2017-02-01 07:12] VITALS: PULSE 82; O2SAT 92
[2017-02-01 07:36] LABS: BASO % 0.1 %; BASO ABS # 0.01 K/uL (0-0.2); COMPLETE YES; EOS % 0.4 %; HEMATOCRIT 36.3 % (42-52); IG% 0.3 %; LYMPH % 16.6 %; LYMPH ABS # 1.54 K/uL (1.2-3.4); MEAN CELL VOLUME 80.1 fL (80-100); MEAN CORPUSCULAR HEMOGLOBIN 24.9 pg (25-34); MEAN CORPUSCULAR HGB CONC 31.1 g/dl (32-36); MEAN PLATELET VOLUME 8.9 fL (7.4-10.4); MONO % 10.6 %; PLATELET COUNT 189 K/uL (130-400); RED BLOOD COUNT 4.53 M/uL (4.7-6.1); WHITE BLOOD COUNT 9.28 K/uL (4.8-10.8)
[2017-02-01] MEDS: LISINOPRIL 20 MG TAB PO SCH (08:04)
[2017-02-01] MEDS: PANTOprazole SOD 40 MG TAB PO SCH (08:04)
[2017-02-01] MEDS: AZITHROMYCIN 250 MG TAB PO SCH (08:05)
[2017-02-01] MEDS: GUAIFENESIN 600 MG TABCR PO SCH ×2 (08:05→22:25)
[2017-02-01] MEDS: BuPROPion XL 300 MG TABCR PO SCH (08:06)
[2017-02-01] MEDS: ENOXAPARIN 40 MG/0.4 ML SYR SQ SCH (08:07)
[2017-02-01 09:27] LABS: BUN/CREATININE RATIO 15.7 (10-20); CALCIUM 8.6 mg/dl (8.5-10.1); CREATININE 0.97 mg/dl (0.60-1.40)
[2017-02-01] MEDS ORDERED: AZIT500T3 PO (10:19)
[2017-02-01] MEDS: NALOXONE SL SCH (10:26)
[2017-02-01] MEDS: BUPRENORPHINE SL SCH (10:26)
[2017-02-01] MEDS ORDERED: ACETAMINOPHEN 325 MG TAB PO ONE (11:30)
--- NOTE | 2017-02-01 11:40 | DIAGNOSTIC IMAGING REPORT ---
CHEST 2 VIEWS ROUTINE CLINICAL HISTORY: worsening pneumonia COMPARISON STUDY: 01/30/2017 FINDINGS: The heart is mildly enlarged. There are bilateral interstitial opacities, similar to the prior study. There are no pleural effusions.[ IMPRESSION: No significant change in the bilateral interstitial opacities. Electronically signed by: Andrae Lambert M.D. 02/01/2017 11:39 AM Dictated Date/Time: 02/01/2017 11:38 AM
--- NOTE | 2017-02-01 13:41 | Hospitalist Progress Note ---
Hospitalist Progress Note Date of Service February 01, 2017. (Verena Lenz ., PA-C) Subjective Pt evaluation today including: conversation w/ patient, physical exam, chart review, lab review, review of studies, review of inpatient medication list Pain: 4/10 sharp pain in left lateral ribs PO Intake: Tolerating PO diet Voiding: no voiding problems Patient reports feeling worse than yesterday. He complains of weakness and fatigue, dyspnea on exertion, productive cough, as well as a 4/10 sharp pain in his left lateral ribs that is worse with deep breaths and coughing. The patient denies fevers, chills, sweats, chest pain, palpitations, claudication, he states nausea, vomiting, abdominal pain, dysuria, hematuria, urinary retention, paralysis, motor weakness, numbness and tingling. Additional Comments: See HPI for pertinent positives and negatives. All other systems reviewed and negative. (Verena Lenz ., PA-C) Objective Vital Signs Date Time Temp Pulse Resp B/P Pulse Ox O2 Delivery O2 Flow Rate FiO2 02/01/17 08:00 Room Air 02/01/17 07:12 82 16 92 Room Air 02/01/17 07:03 36.9 81 20 132/83 93 Room Air 02/01/17 02:16 101 16 93 Room Air 02/01/17 00:01 36.9 106 20 123/76 93 Room Air 02/01/17 00:00 Room Air 01/31/17 19:19 108 16 90 Room Air 01/31/17 19:15 90 Room Air 01/31/17 15:40 Room Air 01/31/17 15:21 36.9 97 18 121/73 90 Room Air 01/31/17 14:39 74 14 94 Room Air (Verena Lenz ., PA-C) Physical Exam Notes: General appearance: +obese. Appears fatigued. Well-developed, well-nourished , no apparent distress Head: Normocephalic, atraumatic Eyes: Normal inspection, PERRL, EOMI ENT: Normal ENT inspection, hearing grossly normal, pharynx normal Neck: Supple, no JVD, trachea midline Respiratory/Chest: +Decreased breath sounds bilaterally, worse than yesterday. Poor air movement. Left lateral ribs TTP. Lungs clear to auscultation, no respiratory distress Cardiovascular: Regular rate & rhythm, no gallop, no murmur Abdomen/GI: Normal bowel sounds, non-tender, soft Extremities/Musculoskeletal: Normal inspection, no calf tenderness, no pedal edema Neurological/Psych: Alert, normal mood/affect, oriented x 3 Skin: Normal color, warm/dry, no rash (Verena Lenz .LUIS CARLOS) Laboratory Results Last 24 Hours Test 02/01/17 07:11 White Blood Count 9.28 K/uL Red Blood Count 4.53 M/uL Hemoglobin 11.3 g/dL Hematocrit 36.3 % Mean Corpuscular Volume 80.1 fL Mean Corpuscular Hemoglobin 24.9 pg Mean Corpuscular Hemoglobin Concent 31.1 g/dl Platelet Count 189 K/uL Mean Platelet Volume 8.9 fL Neutrophils (%) (Auto) 72.0 % Lymphocytes (%) (Auto) 16.6 % Monocytes (%) (Auto) 10.6 % Eosinophils (%) (Auto) 0.4 % Basophils (%) (Auto) 0.1 % Neutrophils # (Auto) 6.68 K/uL Lymphocytes # (Auto) 1.54 K/uL Monocytes # (Auto) 0.98 K/uL Eosinophils # (Auto) 0.04 K/uL Basophils # (Auto) 0.01 K/uL RDW Standard Deviation 47.8 fL RDW Coefficient of Variation 16.5 % Immature Granulocyte % (Auto) 0.3 % Immature Granulocyte # (Auto) 0.03 K/uL Sodium Level 140 mmol/L Potassium Level 4.0 mmol/L Chloride Level 103 mmol/L Carbon Dioxide Level 28 mmol/L Anion Gap 9.0 mmol/L Blood Urea Nitrogen 15 mg/dl Creatinine 0.97 mg/dl Est Creatinine Clear Calc Drug Dose 132.3 ml/min Estimated GFR () 113.5 Estimated GFR (Non- 97.9 BUN/Creatinine Ratio 15.7 Random Glucose 84 mg/dl Calcium Level 8.6 mg/dl Magnesium Level 2.0 mg/dl (Verena Lenz .LUIS CARLOS) Diagnostic Results Reviewed the following studies and agree with interpretation as follows: Patient Name: NAVEEN LEI Unit Number: [id number] Dictated: 02/01/17 1138 Transcribed: 02/01/17 1138 ARG Printed Date/Time: [~ rep prt dt]/[~ rep prt tm] [~ rep ct labl] - [~ rep ct ivnm] [facility] [place] [address] Dictated: 02/01/17 1138 Transcribed: 02/01/17 1138 ARG Printed Date/Time: [~ rep prt dt]/[~ rep prt tm] [~ rep ct labl] - [~ rep ct ivnm] Patient: NAVEEN LEI Address1: [address] [place] [address] Rec: [id number] Address2: Acct ID: [id number] [facility] Zip: [place] [address] Date: 1975 Sex: M Room/Bed: W12 Ref Phy: No Doctor, Assigned SC: BHAKTI Att Phy: Roshan Norton D.O. Report #: [id number] Alyce Phy: No Doctor, Assigned Test: CXR Admit Phy: Tito Malik M.D. Cigar Brander: DAIANA Interpreting Phy: Andrae Lambert M.D. Diagnosis: BILATERAL PNEUMONIA, SIRS Ordering Phy: Verena Lenz PA-C Service Date: 02/01/17 Admit Date: 01/30/1705/01/17 MNE: [id number] CONF: DICTATED BY: Andrae Lambert M.D.]] CC: Roshan Norton D.O. Cordero, Amanda ., LUIS CARLOS No Doctor, Assigned Endcc: [~ rep ct add3]] CHEST 2 VIEWS ROUTINE CLINICAL HISTORY: worsening pneumonia COMPARISON STUDY: 01/30/2017 FINDINGS: The heart is mildly enlarged. There are bilateral interstitial opacities, similar to the prior study. There are no pleural effusions.[ IMPRESSION: No significant change in the bilateral interstitial opacities. Electronically signed by: Andrae Lambert M.D. 02/01/2017 11:39 AM Dictated Date/Time: 02/01/2017 11:38 AM The status of this report is Signed. Draft = Not yet reviewed or approved by Radiologist. Signed = Reviewed and approved by Radiologist. <AttendingPhy>Roshan Norton D.O.</AttendingPhy> <FamilyPhy>No Doctor, Assigned</FamilyPhy> <PrimaryPhy>No Doctor, Assigned</PrimaryPhy> <UnitNumber> [id number]</UnitNumber> <VisitNumber>[id number]</VisitNumber> <PatientName> NAVEEN LEI</PatientName> <DateOfBirth>1975</DateOfBirth> <Location>[facility] </Location> <ServiceDate>01/30/17</ServiceDate> <MNE>ESINDI</MNE> <OrderingPhy> Verena Lenz PA-C</OrderingPhy> <OrderingPhyMNE>f rep ord dr salas</ OrderingPhyMNE> <DictatingPhyMNE>f rep dict dr salas</DictatingPhyMNE> <CCListMNE> f rep ct mne</CCListMNE> <AdmittingPhyMNE>f pt admit dr salas</AdmittingPhyMNE> < AttendingPhyMNE>f pt attend dr salas</AttendingPhyMNE> <ConsultingPhyMNE>f pt consult dr salas</ConsultingPhyMNE> <FamilyPhyMNE>f pt fam dr salas</FamilyPhyMNE> <OtherPhyMNE>f pt other dr salas</OtherPhyMNE> < PrimaryPhyMNE>f pt prim care dr salas</PrimaryPhyMNE> <ReferringPhyMNE>f pt referring dr salas</ReferringPhyMNE> (Verena Lenz .LUIS CARLOS) Assessment and Plan 41-year-old male with a history of asthma, hypertension, drug abuse, GERD, chronic hepatitis C and depression who presented to the ED with pleuritic chest pain, dyspnea on exertion and cough. Sepsis due to bilateral community-acquired pneumonia with hypoxia--patient meets criteria for sepsis with fever, tachycardia, leukocytosis and source of infection. Ongoing, worse today. -Admitted to tele. Pt in normal sinus rhythm with heart rate between 60s and 80s. Transferred to [facility] [place] on 01/31 -Levaquin IV d/c'd -Continue Rocephin 1 g IV qd -Start azithromycin 500 mg IV qd. Changed to PO. Day #3 of abx -Fevers, tachycardia and leukocytosis resolved. WBC remains WNL on 02/01 -Patient now saturating 92-94% on room air -D/C Prednisone, switch back to Solu-Medrol 60 mg IV q12h as pt states steroids were helping and pt worse today -D/C nebs as pt states not helpful -Continue Mucinex 600 mg PO BID -Flutter valve to help break up mucus -Repeat CXR 02/01 shows no significant change Asthma--stable -Hold Advair -Continue Singulair 10 mg PO qd HTN--stable -Continue lisinopril 20 mg PO qd H/o drug abuse -Continue Suboxone outpt regimen GERD -Protonix 40 mg PO qd Depression -Continue Wellbutrin 300 mg PO qd DVT prophylaxis -Enoxaparin 40 mg SC q24h -SCDs Code Status -Level I, FULL RESUSCITATION STATUS This chart was completed in part utilizing [employer] Speech Voice Recognition software. Attempts were made to minimize the grammatical errors, random word insertions, pronoun errors and incomplete sentences. Any formal questions or concerns about the content, text or information contained within the body of this dictation should be directly addressed to the provider for clarification. (Verena Lenz ., PA-C) I agree with PA assessment and plan and have seen and examined pt myself Resting comfortably in bed States cough, weakness and chest is tight States worse off than yesterday and states steroids were helping before COugh noted REpeat CXR pending No more fevers or leukocytosis Likely DC in next 24-48hrs COnt antibx (Roshan Norton D.O.)
[2017-02-01 15:09] VITALS: BP 126/78; PULSE 85; TEMP 36.7; O2SAT 90
[2017-02-01 20:00] VITALS: O2SAT 90
[2017-02-01] MEDS: METHYLPREDNISOLONE IV 60 MG in SYRINGE 0 ML IV SCH (22:25)
[2017-02-01] MEDS: CEFTRIAXONE SOD INJ 1 GM in DEXTROSE 5% ADD-VANTAGE 50ML 50 ML IV SCH (22:26)
[2017-02-01] MEDS: MONTELUKAST SOD 10 MG TAB PO SCH (22:26)
[2017-02-02] VITALS: O2SAT 90
[2017-02-02 00:39] VITALS: BP 116/75; PULSE 81; TEMP 36.8; O2SAT 91
[2017-02-02 06:27] LABS: COMPLETE YES; HEMATOCRIT 35.9 % (42-52); IG% 0.4 %; LYMPH % 5.3 %; LYMPH ABS # 0.53 K/uL (1.2-3.4); MEAN CELL VOLUME 78.6 fL (80-100); MEAN CORPUSCULAR HEMOGLOBIN 24.7 pg (25-34); MEAN CORPUSCULAR HGB CONC 31.5 g/dl (32-36); MEAN PLATELET VOLUME 9.1 fL (7.4-10.4); MONO % 5.6 %; NEUT % 88.7 %; PLATELET COUNT 227 K/uL (130-400); RED BLOOD COUNT 4.57 M/uL (4.7-6.1); WHITE BLOOD COUNT 9.98 K/uL (4.8-10.8)
[2017-02-02 07:04] LABS: BUN/CREATININE RATIO 16.9 (10-20); CALCIUM 9.2 mg/dl (8.5-10.1); CREATININE 0.86 mg/dl (0.60-1.40); MAGNESIUM 2.2 mg/dl (1.8-2.4); POTASSIUM 4.9 mmol/L (3.5-5.1)
[2017-02-02 07:22] VITALS: BP 136/77; PULSE 78; TEMP 36.4; O2SAT 93
[2017-02-02] MEDS: GUAIFENESIN 600 MG TABCR PO SCH (07:39)
[2017-02-02] MEDS: AZITHROMYCIN 250 MG TAB PO SCH (07:39)
[2017-02-02] MEDS: BuPROPion XL 300 MG TABCR PO SCH (07:39)
[2017-02-02] MEDS: PANTOprazole SOD 40 MG TAB PO SCH (07:39)
[2017-02-02] MEDS: LISINOPRIL 20 MG TAB PO SCH (07:39)
[2017-02-02] MEDS: METHYLPREDNISOLONE IV 60 MG in SYRINGE 0 ML IV SCH (07:40)
[2017-02-02] MEDS: ENOXAPARIN 40 MG/0.4 ML SYR SQ SCH (07:40)
[2017-02-02] MEDS: BUPRENORPHINE SL SCH (08:00)
[2017-02-02] MEDS: NALOXONE SL SCH (08:00)
[2017-02-02] MEDS ORDERED: PRED10TA PO (09:58)
[2017-02-02] MEDS ORDERED: LEVO-18 PO (09:58)
--- NOTE | 2017-02-02 09:59 | Discharge Instructions ---
Discharge Instructions Date of Service February 02, 2017. Admission Reason for Admission: Bilateral Pneumonia, Sirs Discharge Discharge Diagnosis / Problem: Bilateral pneumonia, SIRS Discharge Goals Goal(s): Decrease discomfort, Improve function, Increase independence, Improve disease control, Diagnostic testing, Therapeutic intervention Activity Recommendations Activity Limitations: resume your previous activity Exercise/Sports Limitations: none Shower/Bathe: no limitations . Instructions / Follow-Up Instructions / Follow-Up Patient to be discharged home Admitted for pneumonia Please take steroid taper as directed Please take antibiotic levaquin once a day for 5 more days If worsening fevers, chills, shortness of breath, please report to ER Current Hospital Diet Patient's current hospital diet: AHA Diet (Heart Healthy) Discharge Diet Recommended Diet: AHA Diet (Heart Healthy) Pending Studies Studies pending at discharge: no Medical Emergencies . Who to Call and When: Medical Emergencies: If at any time you feel your situation is an emergency, please call 911 immediately. . Non-Emergent Contact Non-Emergency issues call your: Primary Care Provider Call Non-Emergent contact if: you have a fever, your pain is worsening . . "Provider Documentation" section prepared by Roshan Norton. . VTE Core Measure Inpt VTE Proph given/why not?: SCD's
[2017-02-02 10:29] VITALS: BP 136/77; PULSE 78; TEMP 36.4; O2SAT 93
--- NOTE | 2017-02-02 12:39 | Discharge Summary ---
Discharge Summary Date of Service February 02, 2017. Discharge Summary Admission Date: January 30, 2017 at 20:01 Discharge Date: February 02, 2017 Discharge Disposition: Home Principal Diagnosis: SIRS, pneumonia Immunizations: History of Tetanus Vaccine?: No History of Pneumococcal: No History of Hepatitis B Vaccine: No Medication Reconciliation New Medications: Levofloxacin (Levaquin) 750 Mg Tab 750 MG PO DAILY for 5 Days, #5 TAB Prednisone Tab (Prednisone) 10 Mg Tab 10 MG PO UD, #30 TAB Please take taper as directed: Take 4 pills daily for 3 days then take 3 pills daily for 3 days then take 2 pills daily for 3 days then take 1 pill daily for 3 days then stop Continued Medications: Albuterol (Ventolin) Inh 2 PUFFS INH Q4H PRN for Asthma Symptoms Buprenorphine Hcl-Naloxone Hcl (Suboxone 8-2 Mg) 1 Mis Mis 12 MG SL DAILY Bupropion HCl (Bupropion HCl Xl) 300 Mg Tabcr 300 MG PO DAILY Fluticasone Prop/Salmeterol (Advair Diskus 500/50 60 Dose) 1 Ea Aerp 1 PUFF INH BID Lisinopril (Prinivil) 20 Mg Tab 1 TAB PO DAILY for 30 Days, #30 TAB 5 Refills Montelukast Sod (Montelukast Sodium) 10 Mg Tab 10 MG PO QPM Omeprazole (Prilosec) 20 Mg Cap 20 MG PO DAILY TAKE THIS MEDICATION ONCE DAILY 30 MINUTES BEFORE BREAKFAST. Discharge Exam Review of Systems: Constitutional: No chills, No fever Respiratory: + cough, + sputum, No dyspnea on exertion, No shortness of breath, No wheezing Cardiovascular: No chest pain, No edema, No orthopnea Abdomen: No diarrhea, No nausea, No pain, No vomiting Musculoskeletal: No joint pain, No muscle pain Genitourinary - Male: No dysuria, No hematuria, No urinary frequency Neurologic: No memory loss, No paralysis, No weakness Psychiatric: No anhedonism, No anxiety, No depression symptoms Physical Exam: General Appearance: WD/WN, no apparent distress Neck: supple, no adenopathy Respiratory/Chest: chest non-tender, lungs clear, normal breath sounds Cardiovascular: no edema, no gallop Abdomen / GI: non tender, soft Neurologic/Psychiatric: alert, oriented x 3 Hospital Course 41-year-old male with a history of asthma, hypertension, drug abuse, GERD, chronic hepatitis C and depression who presented to the ED with pleuritic chest pain, dyspnea on exertion and cough. Sepsis due to bilateral community-acquired pneumonia with hypoxia--patient meets criteria for sepsis with fever, tachycardia, leukocytosis and source of infection. Ongoing, worse today. -Admitted to tele. Pt in normal sinus rhythm with heart rate between 60s and 80s. Transferred to [facility] [place] on 01/31 -Levaquin IV d/c'd -Continue Rocephin 1 g IV qd and azithromycin -Discharged on 5 days of levaquin 750 mg PO daily for 7 days total in addition to prednisone taper -Fevers, tachycardia and leukocytosis resolved. WBC remains WNL on 02/01 -Patient now saturating 92-94% on room air -D/C nebs as pt states not helpful -Continue Mucinex 600 mg PO BID -Flutter valve to help break up mucus -Repeat CXR 02/01 shows no significant change Asthma--stable -Hold Advair -Continue Singulair 10 mg PO qd HTN--stable -Continue lisinopril 20 mg PO qd H/o drug abuse -Continue Suboxone outpt regimen GERD -Protonix 40 mg PO qd Depression -Continue Wellbutrin 300 mg PO qd DVT prophylaxis -Enoxaparin 40 mg SC q24h -SCDs Code Status -Level I, FULL RESUSCITATION STATUS Total Time Spent: Greater than 30 minutes This includes examination of the patient, discharge planning, medication reconciliation, and communication with other providers. Discharge Instructions Please refer to the electronic Patient Visit Report (Discharge Instructions) for additional information.
== END 2017-02-02 11:30 | disposition home or self-care (01) | DRG 871 ==
LOC: ENRESERVTM → ENRESERVDT → C.EDB 15:48 → C.2T 20:01 → C.MS4W 01-31 09:23
PROVIDERS: ADMIT Hospitalist; ATTEND Hospitalist
DX: A41.9 Sepsis, unspecified organism (principal); J18.9 Pneumonia, unspecified organism; A00-B99 Certain infectious and parasitic diseases; J45.909 Unspecified asthma, uncomplicated; I10 Essential (primary) hypertension; K21.9 Gastro-esophageal reflux disease without esophagitis; F19.10 Other psychoactive substance abuse, uncomplicated; F17.210 Nicotine dependence, cigarettes, uncomplicated; Z79.51 Long term (current) use of inhaled steroids; Z79.899 Other long term (current) drug therapy

== ENCOUNTER → 2017-05-01 | Outpatient (CLI) | payer OTHER ==
[~2017-05-01] MED LIST changes: -MTR/600 PO; +PRED10TA PO
--- NOTE | 2017-05-01 12:21 | DIAGNOSTIC IMAGING REPORT ---
CHEST 2 VIEWS ROUTINE CLINICAL HISTORY: Chest pain and shortness of breath COMPARISON STUDY: 02/01/2017 FINDINGS: The heart remains enlarged. There is no failure. There is no lobar consolidation. There are no pleural effusions. There is minor chronic interstitial thickening.[ IMPRESSION: No interval change. Stable cardiomegaly. No acute findings. Electronically signed by: Andrae Lambert M.D. 05/01/2017 12:19 PM Dictated Date/Time: 05/01/2017 12:19 PM
[2017-05-01 13:54] LABS: BASO % 0.2 %; BASO ABS # 0.02 K/uL (0-0.2); COMPLETE YES; EOS % 0.2 %; HEMATOCRIT 36.3 % (42-52); IG% 0.4 %; LYMPH % 6.4 %; LYMPH ABS # 0.69 K/uL (1.2-3.4); MEAN CELL VOLUME 80.1 fL (80-100); MEAN CORPUSCULAR HEMOGLOBIN 24.3 pg (25-34); MEAN CORPUSCULAR HGB CONC 30.3 g/dl (32-36); MEAN PLATELET VOLUME 9.1 fL (7.4-10.4); MONO % 5.2 %; NEUT % 87.6 %; PLATELET COUNT 241 K/uL (130-400); RED BLOOD COUNT 4.53 M/uL (4.7-6.1); WHITE BLOOD COUNT 10.72 K/uL (4.8-10.8)
[2017-05-01 14:04] LABS: ALT/SGPT 52 U/L (12-78); BLOOD UREA NITROGEN 12 mg/dl (7-18); BUN/CREATININE RATIO 11.7 (10-20); CALCIUM 9.3 mg/dl (8.5-10.1); CARBON DIOXIDE 32 mmol/L (21-32); CHLORIDE 104 mmol/L (98-107); GLUCOSE 115 mg/dl (70-99); POTASSIUM 4.7 mmol/L (3.5-5.1); SODIUM 139 mmol/L (136-145)
[2017-05-01 14:15] LABS: ALB/GLOB RATIO 0.8 (0.9-2); ALKALINE PHOSPHATASE 138 U/L (45-117); AST/SGOT 34 U/L (15-37); THYROID STIMULATING HORMONE 0.682 uIu/ml (0.300-4.500)
== END | disposition home or self-care (01) ==
LOC: C.RADBC 11:54
PROVIDERS: ATTEND Family Medicine
DX: R06.02 Shortness of breath (principal); R07.9 Chest pain, unspecified; R60.9 Edema, unspecified; I51.7 Cardiomegaly

== ENCOUNTER → 2017-05-02 | Outpatient (CLI) | payer OTHER ==
[~2017-05-02] MED LIST changes: +OPTIRAY 320 IV PRN
--- NOTE | 2017-05-02 09:37 | DIAGNOSTIC IMAGING REPORT ---
CT ANGIOGRAM OF THE CHEST CLINICAL HISTORY: Atypical chest pain and shortness of breath. LEFT-SIDED PAIN COMPARISON STUDY: A 2216 TECHNIQUE: Following the IV administration of 94 mL of Optiray-320, CT angiogram of the thorax was performed from the thoracic inlet to the lung bases utilizing the pulmonary embolus protocol. Images are reviewed in the axial, sagittal, and coronal planes. IV contrast was administered without complication. MIP imaging was performed. A dose lowering technique was utilized adhering to the principles of ALARA. CT DOSE: 460.64 mGy.cm FINDINGS: There is a right paratracheal lymph node the upper limits of normal in size. There is no pathologic hilar or axillary lymphadenopathy. There is no evidence of pathologic aortic dilatation. There are no findings to indicate thoracic aortic dissection There were no pulmonary artery filling defects to indicate acute pulmonary embolism. No pleural effusions are visualized. There are mild dependent atelectatic changes. There is no focal pulmonary consolidation. There is a stable 6 mm right lower lobe nodule abutting the fissure. There is a stable 3 mm right middle lobe nodule abutting the fissure. There is a small hiatal hernia. IMPRESSION: 1. No evidence of acute pulmonary embolism 2. No evidence of acute parenchymal consolidation Electronically signed by: Andrae Lambert M.D. 05/02/2017 9:36 AM Dictated Date/Time: 05/02/2017 9:30 AM
== END | disposition home or self-care (01) ==
LOC: C.CTS 09:04
PROVIDERS: ATTEND Family Medicine
DX: R06.02 Shortness of breath (principal); R07.9 Chest pain, unspecified; R60.9 Edema, unspecified

== ENCOUNTER → 2017-05-09 | Outpatient (CLI) | payer OTHER ==
[~2017-05-09] MED LIST changes: -OPTIRAY 320 IV PRN
[2017-05-09 13:37] LABS: THYROID STIMULATING HORMONE 1.43 uIu/ml (0.300-4.500)
[2017-05-09 14:16] LABS: BENZODIAZEPINE, URINE NEG (NEG); COCAINE,URINE NEG (NEG); PHENCYCLIDINE, URINE NEG (NEG)
[2017-05-12 15:39] LABS: NORBUPRENORPHINE QNT 372 NG/ML (CUTOFF=2)
== END | disposition home or self-care (01) ==
LOC: C.LAB1850 09:58
PROVIDERS: ATTEND Psychiatry & Neurology Psychiatry
DX: F11.20 Opioid dependence, uncomplicated (principal)

== ENCOUNTER → 2017-06-16 | Outpatient (CLI) | payer OTHER ==
--- NOTE | 2017-06-16 15:44 | DIAGNOSTIC IMAGING REPORT ---
ABDOMEN COMPLETE (US) CLINICAL HISTORY: Shortness of breath. Abdominal distention. Chronic hepatitis C. COMPARISON STUDY: CT of the abdomen and pelvis January 30, 2017. FINDINGS: This exam is moderately compromised by suboptimal penetration. Hepatic echogenicity is increased. No hepatic lesions are identified although sensitivity is diminished on this exam. There is no biliary ductal dilatation. A gallstone is noted within the gallbladder. There is no gallbladder wall thickening. The pancreatic body is normal. Head and tail are slightly obscured by overlying bowel gas. Mild splenomegaly is similar to exam of January 30, 2017. The right kidney measures 11.3 cm and the left measures 12.6 cm. There is no hydronephrosis. The abdominal aorta and IVC were obscured. No ascites was identified. IMPRESSION: 1. Increased hepatic echogenicity suggestive of fatty infiltration. No hepatic lesions identified although sensitivity significantly diminished on this exam due to suboptimal penetration. 2. Cholelithiasis. No gallbladder wall thickening. 3. No biliary ductal dilatation. 4. No hydronephrosis. 5. No ascites. Electronically signed by: Steven Oliveira M.D. 06/16/2017 3:42 PM Dictated Date/Time: 06/16/2017 3:39 PM
[2017-06-16 16:57] LABS: BASO % 0.1 %; BASO ABS # 0.01 K/uL (0-0.2); COMPLETE YES; HEMATOCRIT 36.1 % (42-52); IG% 0.4 %; LYMPH % 4.9 %; LYMPH ABS # 0.55 K/uL (1.2-3.4); MEAN CELL VOLUME 76.3 fL (80-100); MEAN CORPUSCULAR HEMOGLOBIN 22.8 pg (25-34); MEAN CORPUSCULAR HGB CONC 29.9 g/dl (32-36); MEAN PLATELET VOLUME 9.4 fL (7.4-10.4); MONO % 2.1 %; NEUT % 92.5 %; PLATELET COUNT 273 K/uL (130-400); RED BLOOD COUNT 4.73 M/uL (4.7-6.1); WHITE BLOOD COUNT 11.31 K/uL (4.8-10.8)
[2017-06-16 17:08] LABS: ALT/SGPT 65 U/L (12-78); BLOOD UREA NITROGEN 16 mg/dl (7-18); BUN/CREATININE RATIO 14.3 (10-20); CALCIUM 9.3 mg/dl (8.5-10.1); CARBON DIOXIDE 28 mmol/L (21-32); CHLORIDE 103 mmol/L (98-107); GLUCOSE 131 mg/dl (70-99); POTASSIUM 4.4 mmol/L (3.5-5.1); SODIUM 138 mmol/L (136-145)
[2017-06-16 17:19] LABS: ALB/GLOB RATIO 0.9 (0.9-2); ALKALINE PHOSPHATASE 150 U/L (45-117); AST/SGOT 41 U/L (15-37); THYROID STIMULATING HORMONE 0.295 uIu/ml (0.300-4.500)
[2017-06-21 06:30] LABS: HEPATITIS C RNA TMA QUAL Detected
== END | disposition home or self-care (01) ==
LOC: C.ULTRBC 14:59
PROVIDERS: ATTEND Family Medicine
DX: R06.02 Shortness of breath (principal); R60.9 Edema, unspecified; B18.2 Chronic viral hepatitis C; R14.0 Abdominal distension (gaseous); R16.1 Splenomegaly, not elsewhere classified; K80.20 Calculus of gallbladder without cholecystitis without obstruction

== ENCOUNTER → 2017-06-20 | Outpatient (CLI) | payer OTHER ==
[2017-06-20 15:24] LABS: FERRITIN 29.6 ng/ml (8.0-388.0); THYROID STIMULATING HORMONE 0.395 uIu/ml (0.300-4.500); TOTAL IRON BINDING CAPACITY 457 mcg/dl (250-450)
--- NOTE | 2017-06-20 16:31 | ECHOCARDIOGRAM REPORT ---
*NOTICE TO RECEIVING REPUBLICAN AGENCY This information is strictly Confidential and protected under [place] law. [place] law prohibits you from making any further disclosure of this information unless further disclosure is expressly permitted by the written consent of the person to whom it pertains or is authorized by law. A general authorization for the release of medical or other information is not sufficient for this purpose. Hospital accepts no responsibility if the information is made available to any other person, INCLUDING THE PATIENT. Interpretation Summary * Name: NAVEEN LEI Study Date: 06/20/2017 01:13 PM BP: 148/73 mmHg * Patient Location: [facility] HR: 89 * : 1975 (M/d/yyyy) Gender: Male Height: 72 in * Age: 42 yrs Ethnicity: CA Weight: 260 lb * Ordering Physician: Edelmira Gillis * Referring Physician: Edelmira Gillis D.O. * Performed By: Lissette Vallejo RDCS * * Reason For Study: CHEST PAIN, SOB, EDEMA * BSA: 2.4 m2 * -- Conclusions -- * The left ventricle is hyperdynamic. * No regional wall motion abnormalities noted. * Ejection Fraction = >70 %. * No significant valvular patholgy. Procedure Details * A complete two-dimensional transthoracic echocardiogram was performed (2D, M-mode, Doppler and color flow Doppler). Left Ventricle * The left ventricle is normal in size. * There is normal left ventricular wall thickness. * Ejection Fraction = >70 %. * The left ventricle is hyperdynamic. * No regional wall motion abnormalities noted. Right Ventricle * The right ventricle is normal in size and function. Atria * The left atrial size is normal. * Right atrial size is normal. * There is no evidence of atrial septal defect, but resolution does not allow assessment for a patent foramen ovale. Mitral Valve * The mitral valve anatomy is normal. * There is no mitral valve stenosis. * Significant mitral regurgitation is absent. Tricuspid Valve * The tricuspid valve is not well visualized, but is grossly normal. * There is no tricuspid stenosis. * Significant tricuspid regurgitation is absent. Aortic Valve * The aortic valve is not well visualized. * The aortic valve opens well. * Aortic stenosis is absent. * No aortic regurgitation is present. Pulmonic Valve * The pulmonary valve is not well seen, but the Doppler examination is normal without significant regurgitation or stenosis. Great Vessels * The aortic root is normal size. Pericardium/Pleural * There is no pericardial effusion. Great Vessels * Inferior vena cava not well seen. MMode 2D Measurements and Calculations IVSd 1.3 cm IVSs 2.2 cm LVIDd 4.7 cm LVIDs 2.5 cm LVPWd 1.6 cm LVPWs 2.2 cm IVS/LVPW 0.82 FS 46.6 % EDV(Teich) 101.1 ml ESV(Teich) 22.2 ml EF(Teich) 78.0 % EDV(cubed) 102.1 ml ESV(cubed) 15.5 ml EF(cubed) 84.8 % % IVS thick 73.1 % % LVPW thick 37.7 % LV mass(C)d 275.9 grams LV mass(C)dI 115.8 grams/m\S\2 LV mass(C)s 265.2 grams LV mass(C)sI 111.4 grams/m\S\2 SV(Teich) 78.9 ml SI(Teich) 33.1 ml/m\S\2 SV(cubed) 86.6 ml SI(cubed) 36.4 ml/m\S\2 Ao root diam 3.5 cm Ao root area 9.6 cm\S\2 LA dimension 3.8 cm LA/Ao 1.1 LVAd ap4 37.0 cm\S\2 LVLd ap4 9.1 cm EDV(MOD-sp4) 122.7 ml EDV(sp4-el) 128.3 ml LVAs ap4 15.9 cm\S\2 LVLs ap4 7.1 cm ESV(MOD-sp4) 30.2 ml ESV(sp4-el) 30.2 ml EF(MOD-sp4) 75.4 % EF(sp4-el) 76.5 % LVAd ap2 37.6 cm\S\2 LVLd ap2 8.6 cm EDV(MOD-sp2) 132.6 ml EDV(sp2-el) 139.6 ml LVAs ap2 17.1 cm\S\2 LVLs ap2 7.2 cm ESV(MOD-sp2) 34.2 ml ESV(sp2-el) 34.7 ml EF(MOD-sp2) 74.2 % EF(sp2-el) 75.2 % LVLd %diff -5.24 % EDV(MOD-bp) 130.5 ml LVLs %diff 1.2 % ESV(MOD-bp) 32.0 ml EF(MOD-bp) 75.4 % SV(MOD-sp4) 92.5 ml SI(MOD-sp4) 38.8 ml/m\S\2 SV(MOD-sp2) 98.4 ml SI(MOD-sp2) 41.3 ml/m\S\2 SV(MOD-bp) 98.5 ml SI(MOD-bp) 41.3 ml/m\S\2 SV(sp4-el) 98.1 ml SI(sp4-el) 41.2 ml/m\S\2 SV(sp2-el) 104.9 ml SI(sp2-el) 44.1 ml/m\S\2 Doppler Measurements and Calculations MV E max kit 128.5 cm/sec MV A max kit 89.5 cm/sec MV E/A 1.4 MV dec time 0.16 sec Ao V2 max 138.0 cm/sec Ao max PG 7.6 mmHg Ao max PG (full) 1.1 mmHg LV V1 max PG 6.5 mmHg LV V1 max 127.7 cm/sec
== END | disposition home or self-care (01) ==
LOC: C.CPL 12:56
PROVIDERS: ATTEND Family Medicine
DX: D64.9 Anemia, unspecified (principal); R94.5 Abnormal results of liver function studies; R94.6 Abnormal results of thyroid function studies

== ENCOUNTER → 2017-06-21 | Outpatient (CLI) | payer OTHER ==
--- NOTE | 2017-06-21 18:17 | DIAGNOSTIC IMAGING REPORT ---
ULTRASOUND VENOUS DOPPLER LWR EXT BILA CLINICAL HISTORY: Bilateral leg pain COMPARISON STUDY: No previous studies for comparison. FINDINGS: Real-time and color flow Doppler imaging were performed. Flow was seen within the femoral, popliteal and calf veins with no intraluminal thrombus demonstrated. The saphenous vein is patent. IMPRESSION: No evidence of lower extremity DVT. Electronically signed by: Andrae Lambert M.D. 06/21/2017 6:15 PM Dictated Date/Time: 06/21/2017 6:15 PM
== END | disposition home or self-care (01) ==
LOC: C.ULTR 17:25
PROVIDERS: ATTEND Family Medicine
DX: R60.9 Edema, unspecified (principal); M25.561 Pain in right knee

== ENCOUNTER → 2017-06-22 | Outpatient (CLI) | payer OTHER ==
--- NOTE | 2017-06-22 11:28 | DIAGNOSTIC IMAGING REPORT ---
R KNEE 3 VIEWS CLINICAL HISTORY: RIGHT KNEE PAIN pain COMPARISON: None. DISCUSSION: The bones and joint spaces appear intact. There is no evidence of fracture, dislocation or bony disease. Small joint effusion IMPRESSION: Small joint effusion. Otherwise negative study. The above report was generated using voice recognition software. It may contain grammatical, syntax or spelling errors. Electronically signed by: Christopher Concepcion M.D. 06/22/2017 11:27 AM Dictated Date/Time: 06/22/2017 11:20 AM
== END | disposition home or self-care (01) ==
LOC: C.RAD1850 11:03
PROVIDERS: ATTEND Family Medicine
DX: M25.561 Pain in right knee (principal); M25.461 Effusion, right knee

== ENCOUNTER → 2017-06-27 | Outpatient (CLI) | payer OTHER ==
[2017-06-27 18:19] LABS: SYNOVIAL FLUID APPEARANCE CLEAR; SYNOVIAL FLUID COLOR STRAW; SYNOVIAL FLUID MONONUC RELAT 77.6 %; SYNOVIAL FLUID POLYNUC RELAT 22.4 %
[2017-06-27 18:23] LABS: LYME DISEASE AB IGG NEG (NEG); LYME DISEASE AB IGM NEG (NEG)
[2017-06-30 13:31] LABS: LYME DNA PCR CSF OR SYNOVIAL Not detected (Not Detected); LYME DNA SOURCE Synovial Fluid
== END | disposition home or self-care (01) ==
LOC: C.LABBC 14:01
PROVIDERS: ATTEND Orthopaedic Surgery
DX: M25.461 Effusion, right knee (principal); M25.561 Pain in right knee

== ENCOUNTER → 2017-07-27 | Outpatient (CLI) | payer OTHER ==
[2017-07-27 12:48] LABS: MEAN CELL VOLUME 72.8 fL (80-100); MEAN CORPUSCULAR HEMOGLOBIN 21.1 pg (25-34); MEAN CORPUSCULAR HGB CONC 28.9 g/dl (32-36); MEAN PLATELET VOLUME 9.4 fL (7.4-10.4); PLATELET COUNT 298 K/uL (130-400); RED BLOOD COUNT 5.08 M/uL (4.7-6.1); WHITE BLOOD COUNT 9.17 K/uL (4.8-10.8)
[2017-07-27 12:55] LABS: URINE APPEARANCE CLEAR (CLEAR); URINE COLOR DK YELLOW; URINE NITRITE NEG (NEG); URINE SPECIFIC GRAVITY 1.034 (1.000-1.030); UROBILINOGEN NEG (NEG)
[2017-07-27 13:12] LABS: MANUAL MICROSCOPIC REQUIRED? NO; REVIEW REQ? NO; URINE BILIRUBIN NEG (NEG)
[2017-07-27 13:13] LABS: ALT/SGPT 48 U/L (12-78); AST/SGOT 40 U/L (15-37); BLOOD UREA NITROGEN 14 mg/dl (7-18); BUN/CREATININE RATIO 14.2 (10-20); CALCIUM 9.2 mg/dl (8.5-10.1); CARBON DIOXIDE 31 mmol/L (21-32); CHLORIDE 100 mmol/L (98-107); CHOLESTEROL 175 mg/dl (0-200); CREATININE 0.99 mg/dl (0.60-1.40); GLUCOSE 111 mg/dl (70-99); POTASSIUM 3.3 mmol/L (3.5-5.1); SODIUM 138 mmol/L (136-145)
[2017-07-27 13:16] LABS: ALB/GLOB RATIO 0.8 (0.9-2); ALKALINE PHOSPHATASE 163 U/L (45-117); CHOLESTEROL/HDL RATIO 3.2; HDL CHOLESTEROL 55 mg/dl; LDL CHOLESTEROL CALCULATED 71 mg/dl; TRIGLYCERIDES 244 mg/dl (0-150); VERY LOW DENSITY LIPOPROT CALC 49 mg/dl
== END | disposition home or self-care (01) ==
LOC: C.LAB 11:35
DX: I10 Essential (primary) hypertension (principal); E66.9 Obesity, unspecified; J45.40 Moderate persistent asthma, uncomplicated; K21.9 Gastro-esophageal reflux disease without esophagitis; B18.2 Chronic viral hepatitis C; R53.82 Chronic fatigue, unspecified; R73.01 Impaired fasting glucose; D64.9 Anemia, unspecified

== ENCOUNTER → 2017-10-10 | Outpatient (CLI) | payer OTHER ==
[~2017-10-10] MED LIST changes: -PRED10TA PO
[2017-10-10 11:59] LABS: ALBUMIN 3.7 gm/dl (3.4-5.0); ALKALINE PHOSPHATASE 138 U/L (45-117); ALT/SGPT 71 U/L (12-78); AST/SGOT 36 U/L (15-37)
== END | disposition home or self-care (01) ==
LOC: C.LAB 09:19
PROVIDERS: ATTEND Psychiatry & Neurology Psychiatry
DX: F11.20 Opioid dependence, uncomplicated (principal); Z79.899 Other long term (current) drug therapy

== ENCOUNTER → 2017-12-07 | Outpatient (CLI) | payer OTHER | END | disposition home or self-care (01) | LOC: C.LAB1850 15:05 | PROVIDERS: ATTEND Psychiatry & Neurology Psychiatry | DX: F11.20 Opioid dependence, uncomplicated (principal) ==

== ENCOUNTER → 2017-12-07 | Outpatient (CLI) | payer OTHER ==
[2017-12-07 12:29] LABS: BASO % 0.4 %; BASO ABS # 0.03 K/uL (0-0.2); EOS % 3.9 %; EOS ABS # 0.28 K/uL (0-0.5); HEMATOCRIT 43.1 % (42-52); HEMOGLOBIN 14.7 g/dL (14.0-18.0); IG# 0.02 K/uL (0.00-0.02); LYMPH % 23.3 %; LYMPH ABS # 1.69 K/uL (1.2-3.4); MEAN CELL VOLUME 85.5 fL (80-100); MEAN CORPUSCULAR HEMOGLOBIN 29.2 pg (25-34); MEAN CORPUSCULAR HGB CONC 34.1 g/dl (32-36); MEAN PLATELET VOLUME 8.9 fL (7.4-10.4); MONO % 10.2 %; MONO ABS # 0.74 K/uL (0.11-0.59); NEUT % 61.9 %; NEUT ABS # 4.48 K/uL (1.4-6.5); PLATELET COUNT 222 K/uL (130-400); RED CELL DISTRIBUTION WIDTH CV 14.6 % (11.5-14.5); RED CELL DISTRIBUTION WIDTH SD 44.9 fL (36.4-46.3); WHITE BLOOD COUNT 7.24 K/uL (4.8-10.8)
[2017-12-07 13:14] LABS: ALBUMIN 3.7 gm/dl (3.4-5.0); ALT/SGPT 62 U/L (12-78); BLOOD UREA NITROGEN 11 mg/dl (7-18); CALCIUM 9.3 mg/dl (8.5-10.1); CARBON DIOXIDE 28 mmol/L (21-32); CREATININE 0.87 mg/dl (0.60-1.40); GLUCOSE 86 mg/dl (70-99); POTASSIUM 3.7 mmol/L (3.5-5.1); SODIUM 136 mmol/L (136-145)
[2017-12-07 13:17] LABS: ALKALINE PHOSPHATASE 133 U/L (45-117); AST/SGOT 42 U/L (15-37); TOTAL PROTEIN 7.9 gm/dl (6.4-8.2)
[2017-12-12 11:12] LABS: HEPATITIS C VIRAL RNA BY PCR 8410000 IU/ML (<15); HEPATITIS C VIRAL RNA(LOG) PCR 6.92 LOG IU/ML (<1.18)
== END | disposition home or self-care (01) ==
LOC: C.LAB1850 10:32
PROVIDERS: ATTEND Internal Medicine Infectious Disease
DX: B18.2 Chronic viral hepatitis C (principal)

== ENCOUNTER → 2018-04-25 | Outpatient (CLI) | payer OTHER | END | disposition home or self-care (01) | LOC: C.LAB1850 15:32 | PROVIDERS: ATTEND Internal Medicine | DX: F11.20 Opioid dependence, uncomplicated (principal) ==